=== PATIENT | male | born 1945 | race Caucasian/White ===

== ENCOUNTER 2018-12-22 08:32 | Observation (INO) ==
[2018-12-22] MEDS ORDERED: Aspirin 81 MG TAB.CHEW PO ONE (08:43)
[2018-12-22] MEDS ORDERED: Nitroglycerin 0.4 MG TAB.SUBL SL PRN (08:43)
--- NOTE | 2018-12-22 08:52 | Emergency Department Note ---
Disposition Clinical Impression: Drug overdose Qualifiers: Encounter type: initial encounter Injury intent: accidental or unintentional Qualified Code(s): T50.901A - Poisoning by unspecified drugs, medicaments and biological substances, accidental (unintentional), initial encounter Chest pain Qualifiers: Chest pain type: unspecified Qualified Code(s): R07.9 - Chest pain, unspecified Disposition: Admitted As Inpatient Condition: Fair Time of Disposition: 13:30 General Adult HPI - General Chief complaint: ED Overdose Stated complaint: OD Time Seen by Provider: 12/22/18 08:42 Source: patient, EMS, police Mode of arrival: EMS Limitations: no limitations Nursing Notes Reviewed: Yes Vital Signs Reviewed: Yes - History of Present Illness HPI Narrative: 73-year-old male with uncertain past medical history possibly cardiac and, acco rding to police, a history of drug use, and multiple sexual partners. Who reportedly was found unresponsive this morning and EMS was called. When EMS responded he was breathing at a times per minute they administered 5 of intranasal Narcan which make him more alert and oriented and able to answer questions. EMS denies every responding to this patient for an overdose before, but police report multiple episodes of responding to calls for soliciting prostitutes. Pt denies using any illicit substances, but police report multiple syringes and drug paraphenelia in the pt's home. Pt is complaining chest pain, and also reports that he thinks he had a heart attack on [facility] because he had 10 minutes of chest pain. He did not seek medical care at that time. Pain Scale: 0 - Related Data Allergies Allergy/AdvReac Type Severity Reaction Status Date / Time Penicillins Allergy Hives Verified 12/22/18 09:42 Review of Systems: All systems ED: reviewed and negative except as stated. Constitutional: Denies: fever, chills ENT ED: Denies: ear pain, throat pain Cardiovascular: Denies: palpitations Reports: chest pain Respiratory: Denies: cough, dyspnea Gastrointestinal: Denies: abdominal pain, nausea, vomiting, diarrhea, constipation Genitourinary: Denies: urgency, dysuria, frequency Musculoskeletal: Denies: back pain, neck pain Integumentary: Denies: rash, abrasion Neurological: Denies: weakness, numbness, paresthesias Reports: headache Psychiatric: Denies: anxiety, depression Endocrine: Denies: fatigue, heat or cold intolerance Hematological/Lymphatic: Denies: easy bleeding, easy bruising Allergic/Immunologic: Denies: facial swelling, urticaria All systems ED: reviewed and negative except as stated. Past Medical History - Past Medical History Attestation: Yes The following information was validated with the patient. Medical history: Reports: myocardial infarction Psychiatric history: Reports: no psych history - Social History Smoking Status: Current every day smoker Alcohol use: Reports: none Physical Exam General: A&O x 3. Shivering. Thin, cachetic male. Disheveled. Clothes appear soiled. Head: atraumatic, normocephalic. ENT: No conjunctival injection, no scleral icterus. PERRLA. EOMI. Oropharynx non- erythematous. mucous membranes dry. Neuro: No focal deficits, no speech deficit, no facial droop, mentating well. BUE/BLE Str 5/5. Pulm: Lungs CTAB A/P. No wheezes, rales, ronchi. Cardio: Tachycardia. Chest not tender to palpation. Abd: Soft, non-distended. Normoactive bowel sounds. Non-tender to palpation. No guarding. Non rigid. Extremities: Radial pulses 2+ [place], dorsalis pedis/posterior tibialis 2+ [place]. No LE edema. No cyanosis, clubbing. Skin: warm, dry, intact. No rashes. Psych: Appropriate mood and affect. Answers questions appropriately. Cooperative with exam. - General Limitations: no limitations General appearance: alert Course Course Narrative: Ddx includes but is not limited to: ACS, overdose Workup: CBC, BMP, troponin, LFTs, UA, CXR, EKG, UDS Vital Signs Temperature 99.0 F 12/22/18 08:33 Pulse Rate 79 12/22/18 08:33 Respiratory Rate 16 12/22/18 08:33 Blood Pressure 167/99 12/22/18 08:33 O2 Sat by Pulse Oximetry 99 12/22/18 08:33 Temperature 99.0 F 12/22/18 08:33 Pulse Rate 67 12/22/18 11:34 Respiratory Rate 16 12/22/18 14:02 Blood Pressure 104/74 12/22/18 14:02 O2 Sat by Pulse Oximetry 97 12/22/18 11:34 Oxygen Delivery Oxygen Delivery Room Air Medical Decision Making - [facility] Narrative Medical decision making narrative: CXR was negative for acute cardiopulmonary findings, EKG did not show ischemic changes, initial troponin was negative. However, HEART score of 6, age, and personal risk factors including cocaine use places him at increased risk for adverse cardiac outcome. Additionally, with hx of recent chest pain on Easter makes this morning's episode slightly more likely to be cardiac in origin. Will admit to hospitalist.Shared workup results with patient at bedside and recommended admission and pt was amenable to the plan. Pt was given aspirin and lorazepam in the department given positive cocaine on UDS. Patient was given an opportunity to ask questions at bedside and all of their concerns were addresse d. Patient verbalized understanding and agreement with plan of care. Pt remained stable while in the department. - Medical Records Medical records reviewed: Yes I reviewed the patient's medical records. - Lab Data Lab results reviewed: Yes I reviewed the patient's lab results. Result diagrams: 12/22/18 09:24 12/22/18 09:24 Lab Results 12/22/18 12/22/18 12/22/18 Range/Units 09:24 09:24 09:24 WBC 6.2 (4.3-11.1) K/mcL RBC 4.59 (4.19-5.50) M/mcL Hgb 14.5 (12.9-16.9) g/dL Hct 43.6 (37.5-50.1) % MCV 95.0 (83.0-100.0) fL MCH 31.6 (28.0-33.3) pg MCHC 33.3 (31.6-35.5) g/dL RDW 13.5 (11.5-14.5) % Plt Count 257 (140-400) K/mcL MPV 10.3 (9.4-12.4) fL Immature Gran % 0.3 (0-4) % Seg Neutrophils % 75.4 % Lymphocytes % 14.4 % Monocytes % 7.5 % Eosinophils % 1.9 % Basophils % 0.5 % Neutrophils # 4.7 (1.6-8.9) K/mcL Lymphocytes # 0.9 (0.6-4.6) K/mcL Monocytes # 0.5 (0.0-1.3) K/mcL Eosinophils # 0.1 (0.0-0.6) K/mcL Basophils # 0.0 (0.0-0.2) K/mcL PT 11.1 (9.4-12.1) Seconds INR 1.0 APTT 30.9 (26.0-36.0) Seconds Sodium (136-145) mEq/L Potassium (3.5-5.1) mEq/L Chloride (98-107) mEq/L Carbon Dioxide (23-29) mEq/L BUN (8-23) mg/dL Creatinine (0.70-1.30) mg/dL Est GFR ( Amer) (> 60) Est GFR (Non-Af Amer) (> 60) BUN/Creatinine Ratio (6-26) Glucose (70-105) mg/dL Calculated Osmolality (280-300) Calcium (8.6-10.3) mg/dL Total Bilirubin 0.7 (0.3-1.0) mg/dL Direct Bilirubin 0.1 (0.0-0.2) mg/dL Indirect Bilirubin 0.6 (0.0-1.2) mg/dL AST 140 H (13-39) Units/L ALT 200 H (7-52) Units/L Alkaline Phosphatase 75 (34-104) Units/L Troponin I (< 0.04) ng/mL Serum Total Protein 7.5 (6.4-8.9) g/dL Albumin 3.8 (3.5-5.7) g/dL Globulin 3.7 H (2.4-3.5) g/dL Albumin/Globulin Ratio 1.0 L (1.1-2.2) Urine Color (Yellow) Urine Clarity (Clear) Urine pH (5.0-8.0) pH Units Ur Specific [place] (1.010-1.025) Urine Protein (Neg-Trace) mg/dL Urine Glucose (UA) (Normal) mg/dL Urine Ketones (Negative) mg/dL Urine Blood (Negative) Urine Nitrite (Negative) Urine Bilirubin (Negative) Urine Urobilinogen (Normal) mg/dL Ur Leukocyte Esterase (Negative) Ur Culture Indicated? (NO) Urine Opiates Screen (Dakkcx=835) ng/mL Ur Barbiturates Screen (Fsrzod=530) ng/mL Ur Phencyclidine Scrn (Cutoff=25) ng/mL Ur Amphetamines Screen (Rmdrdn=4761) ng/mL U Benzodiazepines Scrn (Fknfgv=854) ng/mL Urine Cocaine Screen (Cutoff= 300) ng/mL U Marijuana (THC) Screen (Cutoff = 50) ng/mL Ur Drug Screen Interp 12/22/18 12/22/18 12/22/18 Range/Units 09:24 11:40 11:43 WBC (4.3-11.1) K/mcL RBC (4.19-5.50) M/mcL Hgb (12.9-16.9) g/dL Hct (37.5-50.1) % MCV (83.0-100.0) fL MCH (28.0-33.3) pg MCHC (31.6-35.5) g/dL RDW (11.5-14.5) % Plt Count (140-400) K/mcL MPV (9.4-12.4) fL Immature Gran % (0-4) % Seg Neutrophils % % Lymphocytes % % Monocytes % % Eosinophils % % Basophils % % Neutrophils # (1.6-8.9) K/mcL Lymphocytes # (0.6-4.6) K/mcL Monocytes # (0.0-1.3) K/mcL Eosinophils # (0.0-0.6) K/mcL Basophils # (0.0-0.2) K/mcL PT (9.4-12.1) Seconds INR APTT (26.0-36.0) Seconds Sodium 136 (136-145) mEq/L Potassium 3.9 (3.5-5.1) mEq/L Chloride 102 (98-107) mEq/L Carbon Dioxide 26 (23-29) mEq/L BUN 16 (8-23) mg/dL Creatinine 0.95 (0.70-1.30) mg/dL Est GFR ( Amer) > 60 (> 60) Est GFR (Non-Af Amer) > 60 (> 60) BUN/Creatinine Ratio 17 (6-26) Glucose 106 H (70-105) mg/dL Calculated Osmolality 284 (280-300) Calcium 9.4 (8.6-10.3) mg/dL Total Bilirubin (0.3-1.0) mg/dL Direct Bilirubin (0.0-0.2) mg/dL Indirect Bilirubin (0.0-1.2) mg/dL AST (13-39) Units/L ALT (7-52) Units/L Alkaline Phosphatase (34-104) Units/L Troponin I < 0.03 (< 0.04) ng/mL Serum Total Protein (6.4-8.9) g/dL Albumin (3.5-5.7) g/dL Globulin (2.4-3.5) g/dL Albumin/Globulin Ratio (1.1-2.2) Urine Color Yellow (Yellow) Urine Clarity Clear (Clear) Urine pH 7.0 (5.0-8.0) pH Units Ur Specific [place] 1.009 L (1.010-1.025) Urine Protein Negative (Neg-Trace) mg/dL Urine Glucose (UA) Normal (Normal) mg/dL Urine Ketones Negative (Negative) mg/dL Urine Blood Negative (Negative) Urine Nitrite Negative (Negative) Urine Bilirubin Negative (Negative) Urine Urobilinogen Normal (Normal) mg/dL Ur Leukocyte Esterase Negative (Negative) Ur Culture Indicated? NO (NO) Urine Opiates Screen Negative (Nvftxv=047) ng/mL Ur Barbiturates Screen Negative (Mivurq=744) ng/mL Ur Phencyclidine Scrn Negative (Cutoff=25) ng/mL Ur Amphetamines Screen Negative (Pzgope=4729) ng/mL U Benzodiazepines Scrn Negative (Njiwqw=254) ng/mL Urine Cocaine Screen Positive H (Cutoff= 300) ng/mL U Marijuana (THC) Screen Negative (Cutoff = 50) ng/mL Ur Drug Screen Interp See Below - Radiology Data Radiology results reviewed: Yes I reviewed the patient's radiology results. Chest X-Ray 12/22/18 08:43 IMPRESSION: No acute abnormality. D/ / Bertin Bee MD / Bertin Bee MD Interpreting Provider: Bertin Bee MD - EKG Data EKG #1 EKG attestation: Yes I reviewed and interpreted this EKG. EKG results narrative: HR 76, rhythm sinus, axis slight right at 93. FL 130, QRS 89, QTc 450. No ST elevation or depression. Attestation Statement - Attestation Attestation: Patient was seen with resident physician. I reviewed the history, physical, assessment and plan, and agree with the findings. I also personally evaluated this patient and had ghgn-ex-njue time with this patient. 73-year-old male presents emergency department with overdose. Patient is a known heroin addict. He was found by bystanders who called the police and subsequently they notified EMS. He is given 5 mg of intranasal Narcan which ultimately improved his mental status. His breathing was at 6 breaths per minute on initial EMS arrival. By the time we saw him patient states he has had some intermittent chest pain. He claims that he had a heart attack over [facility]. He says he does not have chest pain now. There is some bruising on his chest where apparently they attempted to sternally rubbed him to arouse consciousness. This area is tender to palpation. Denies other complaints. Review of systems as above remainder negative. Physical exam vital signs are stable. ENT is unremarkable. Heart regular rhythm and rate. Lungs are clear. Abdomen is soft and nontender. Extremities unremarkable. Neurologically intact focal deficits. Skin no rashes. Psych is normal. ED course. We will do a full cardiac workup. We will also monitor here for signs of worsening overdose or the need for additional Narcan. Because this patient's history of chest pain and multiple other issues, he will be admitted to the hospitalist service for rule out and additional evaluation and treatment is indicated. Chest x-ray showed no acute changes. EKG similarly showed no acute changes. Patient was lucid throughout his stay. He did not require additional Narcan. His drug screen was positive for cocaine. I have a feeling his drug screen will later be positive for opiates as well based on his history. We did speak with the hospitalist service agreed to accept the patient for admission. I agree with resident physician assessment and plan. Heart Score - Score History: Moderately Suspicious EKG: Non Specific repolarisation Disturbance Age: Greater than 65 Risk Factors: Equal/Greater than 3 risk factor or history of atherosclerotic disease Troponin: Less than normal limit HEART Score Total: 6
[2018-12-22 09:46] LABS: Basophils % 0.5 %; Eosinophils # 0.1 K/mcL (0.0-0.6); Eosinophils % 1.9 %; Hematocrit 43.6 % (37.5-50.1); Hemoglobin 14.5 g/dL (12.9-16.9); Immature Granulocytes % 0.3 % (0-4); Lymphocytes # 0.9 K/mcL (0.6-4.6); Lymphocytes % 14.4 %; Mean Corpuscular HGB Conc 33.3 g/dL (31.6-35.5); Mean Corpuscular Hemoglobin 31.6 pg (28.0-33.3); Mean Platelet Volume 10.3 fL (9.4-12.4); Monocytes # 0.5 K/mcL (0.0-1.3); Monocytes % 7.5 %; Neutrophils # 4.7 K/mcL (1.6-8.9); Platelet Count 257 K/mcL (140-400); Red Blood Count 4.59 M/mcL (4.19-5.50); Red Cell Distribution Width 13.5 % (11.5-14.5); Segmented Neutrophils % 75.4 %
[2018-12-22 09:55] LABS: Prothrombin Time 11.1 Seconds (9.4-12.1)
[2018-12-22 09:58] LABS: Activated Partial Thrombo Time 30.9 Seconds (26.0-36.0)
[2018-12-22 10:05] LABS: Albumin 3.8 g/dL (3.5-5.7); Bilirubin,Direct 0.1 mg/dL (0.0-0.2); Bilirubin,Indirect 0.6 mg/dL (0.0-1.2); Bilirubin,Total 0.7 mg/dL (0.3-1.0); Globulin 3.7 g/dL (2.4-3.5); Total Protein 7.5 g/dL (6.4-8.9)
[2018-12-22 10:06] LABS: BUN/Creatinine Ratio 17 (6-26); Blood Urea Nitrogen 16 mg/dL (8-23); Calcium 9.4 mg/dL (8.6-10.3); Carbon Dioxide 26 mEq/L (23-29); Chloride 102 mEq/L (98-107); Glucose 106 mg/dL (70-105); Osmolality,Calculated 284 (280-300); Potassium 3.9 mEq/L (3.5-5.1); Sodium 136 mEq/L (136-145); Troponin I < 0.03 ng/mL (< 0.04); eGFR For Non-African Americans > 60 (> 60)
[2018-12-22 11:56] LABS: Bilirubin,Urine Negative (Negative); Blood,Urine Negative (Negative); Clarity,Urine Clear (Clear); Color,Urine Yellow (Yellow); Glucose,Urine (UA) Normal (Normal); Ketones,Urine Negative (Negative); Leukocyte Esterase,Urine Negative (Negative); Nitrite,Urine Negative (Negative); Protein,Urine Negative (Neg-Trace); Specific Gravity,Urine 1.009 (1.010-1.025); Urobilinogen,Urine Normal (Normal)
[2018-12-22 12:17] LABS: Amphetamine Screen,Urine Negative ng/mL (Cutoff=1000); Barbiturate Screen,Urine Negative ng/mL (Cutoff=200); Benzodiazepines Screen,Urine Negative ng/mL (Cutoff=200); Cannabinoid Screen,Urine Negative ng/mL (Cutoff = 50); Cocaine Screen,Urine Positive ng/mL (Cutoff= 300); Opiate Screen,Urine Negative ng/mL (Cutoff=300); Phencyclidine Screen,Urine Negative ng/mL (Cutoff=25)
[2018-12-22] MEDS ORDERED: *HR* LORazepam 0.5 MG TABLET PO ONE (12:30)
[2018-12-22] MEDS ORDERED: Naloxone 0.4 MG/ML INJ IVP PRN (13:21)
--- NOTE | 2018-12-22 13:30 | Internal Med History&Physical ---
Date of Encounter: 12/22/18 Time of Encounter: 13:26 Internal Medicine - H&P: HPI Chief complaint: overdose Admitted From: Home Plans for Post Hospital Care: Home History of present illness: Mr. Lane is a 73 year old male with no non past medical history was brought in by the police for possible overdose. history is extremely limited as patient is uncooperative with providing history. as per patient he is unsure as to why he was aria here. he reports that the policy specialist came to his home nad he was sleeping and they decided to bring him to the ED. he denies history of heart attacks or stents hwoever he does report that on 2018 he felt chest pain that he thought was a heart attack however he never seeked any medical attention. currently he denies chest pain however his anterior chest is sore to touch. hwne asked if they did sternal rubs to wake him he responds " I dont know". he is not taking any medications other than a capsule to make his stool more solid when asked about the name he is unsure of the name. he denies drug use. he denies alcohol use. denies chest trauma, syncope, weakness of his extremities. as per ED physician documentation he was "found unresponsive and required 5 narcans to become responsive. post Narcans he was Axox3. police report multiple syringes and drug paraphenelia in the pt's home." currently he has no complaints, denies SI or HI- nurs eat bedside who witnessed our conversation. Past Med Surg Social Fam HX - Past Medical History Medical history: myocardial infarction Psychiatric history: no psych history - Past Surgical History Additional surgical history: hemorrhoid surgery - Social History Smoking Status: Current every day smoker Alcohol use: none Internal Medicine - H&P: Meds Allergy/AdvReac Type Severity Reaction Status Date / Time Penicillins Allergy Hives Verified 12/22/18 09:42 All Systems PM: A 10-system review of systems was performed and is negative for pertinent findings except as documented above in the HPI. - Constitutional Vitals: Temp Pulse Resp BP Pulse Ox 99.0 F 67 16 133/85 97 12/22/18 08:33 12/22/18 11:34 12/22/18 11:34 12/22/18 11:34 12/22/18 11:34 Exam: General: Patient is alert, oriented, no acute distress, thin, uncooperative with exam at times. eating when Im auscultating his chest Head: atraumatic, normocephalic, temporal wasting Eye: normal appearance, PERRL, no scleral icterus, no conjunctival injection ENT: mucous membranes moist, normal external ear exam Neck: normal inspection, trachea midline, full ROM, no carotid bruits Chest: normal inspection, symmetric chest rise Respiratory: Good respiratory effort. Bilateral breath sounds are clear without wheezing, crackles, or rhonchi. Cardiovascular: Regular rate and rhythm. s1 and s2 No clicks, rubs, gallops, or murmors. Abdomen: Bowel sounds present normoactive x-4 quadrants. Abdomen is soft, nondistended. no Epigastric tenderness. No guarding or rebound. No organomegaly noted, musculoskeletal: Spontaneously moving all extremities. no edema, no calf tenderness Skin: warm, dry, intact. Neuro: Alert and oriented x no focal deficit , CN 2-12 intact Psych: Patient's affect is normal Internal Med - H&P Results - Labs CBC & Chem 7: 12/22/18 09:24 12/22/18 09:24 Labs: Short CBC 12/22/18 Range/Units 09:24 WBC 6.2 (4.3-11.1) K/mcL Hgb 14.5 (12.9-16.9) g/dL Hct 43.6 (37.5-50.1) % Plt Count 257 (140-400) K/mcL Neutrophils # 4.7 (1.6-8.9) K/mcL BMP 12/22/18 09:24 Sodium 136 Potassium 3.9 Chloride 102 Carbon Dioxide 26 BUN 16 Creatinine 0.95 Glucose 106 H Calcium 9.4 Cardiac Enzymes 12/22/18 Range/Units 09:24 Troponin I < 0.03 (< 0.04) ng/mL Liver Function 12/22/18 Range/Units 09:24 Total Bilirubin 0.7 (0.3-1.0) mg/dL Direct Bilirubin 0.1 (0.0-0.2) mg/dL AST 140 H (13-39) Units/L ALT 200 H (7-52) Units/L Alkaline Phosphatase 75 (34-104) Units/L Albumin 3.8 (3.5-5.7) g/dL Urine 12/22/18 Range/Units 11:40 Urine Color Yellow (Yellow) Urine Clarity Clear (Clear) Urine pH 7.0 (5.0-8.0) pH Units Ur Specific [place] 1.009 L (1.010-1.025) Urine Protein Negative (Neg-Trace) mg/dL Urine Glucose (UA) Normal (Normal) mg/dL - EKG Data -: EKG Interpreted by Myself EKG shows normal: sinus rhythm (por quality ?RAD, QT 450 ) - EKG Data Prior EKG available for review: yes When compared to previous EKG: there is no significant change - Impressions ITS Impressions Chest X-Ray 12/22/18 08:43 IMPRESSION: No acute abnormality. D/ / Bertin Bee MD / Bertin Bee MD Interpreting Provider: Bertin Bee MD - Assessment and Plan (1) Drug overdose Current Visit: Yes Status: Acute Assessment and plan: ? opiod overdose as he responded to narcan however Utox is negative for opiates ( as per poison control synthetic opiates wont show on the urine toxicology) patient has no SI or HI, denies using illicit drugs neurochecks Q4H aspiration, fall, seizure precautions elevate HOB narcan PRN continuous pulse ox and telemetry SW and CM consulted CPK, lactic acid, tylenol, salicylates, oxycodone i called [facility]ie de [facility] poison control who recommended IV NAC for elevated LFTs check LFTs 2 hrs before the last bag of NAC. will get psych consult Qualifiers: Encounter type: initial encounter Injury intent: undetermined intent Qualified Code(s): T50.904A - Poisoning by unspecified drugs, medicaments and biological substances, undetermined, initial encounter (2) Chest pain Current Visit: Yes Status: Acute Assessment and plan: chest pain doubt ACS but will rule out as he has risk factors most likely secondary to cocaine use cardiac monitoring avoid BB as he has UTox positive for cocaine was loaded with ASA in the ED continue with 81 mg daily echocardiogram serial troponins and EKGs Q6H NTG PRN for chest pain Qualifiers: Chest pain type: unspecified Qualified Code(s): R07.9 - Chest pain, unspecified (3) Transaminitis Current Visit: Yes Status: Acute Assessment and plan: ?secondary to drug use vs alcohol vs hepatitis ( has drug use disorder) hepatitis panel, tylenol, salicylates management as above continue to monitor hepatic functions avoid hepatotoxic medications (4) DVT prophylaxis Current Visit: Yes Status: Acute Assessment and plan: heparin sc - Time Spent With Patient Total time spent is greater than 50% in coordination of care (as documented) at patient's floor/unit and/or counseling patient:
[2018-12-22 14:18] LABS: Acetaminophen < 10 mcg/mL (10-20); Creatine Kinase 149 Units/L (30-223); Salicylate < 2.5 mg/dL (15.0-30.0)
[2018-12-22 15:05] LABS: Hepatitis B Surface Antibody < 3.10 mIU/mL
[2018-12-22 15:16] LABS: Hepatitis B Surface Antigen Nonreactive (Nonreactive)
[2018-12-22 15:45] LABS: Hepatitis A Antibody IgM Nonreactive (Nonreactive); Hepatitis B Core IgM Nonreactive (Nonreactive)
[2018-12-22] MEDS ORDERED: WATER IVC ONE ×3 (15:54→21:30)
[2018-12-22] MEDS ORDERED: D5 IVC ONE ×3 (15:54→21:30)
[2018-12-22] MEDS ORDERED: ACETYLCYSTEINE IVC ONE ×3 (15:54→21:30)
[2018-12-22 17:17] LABS: Hepatitis C Virus Antibody Reactive (Nonreactive)
[2018-12-22] MEDS: Thiamine (B-1) 100 MG TABLET PO SCH (17:32)
[2018-12-22] MEDS: 0.9 % Sodium Chloride 1,000 ML IVC SCH (17:33)
[2018-12-22] MEDS: *HR* Heparin 5,000 UNIT/ML VIAL SQ SCH ×2 (17:33→20:48)
[2018-12-22] MEDS: Folic Acid 1 MG TABLET PO SCH (17:33)
[2018-12-23 01:41] LABS: Basophils % 0.6 %; Eosinophils # 0.1 K/mcL (0.0-0.6); Eosinophils % 1.3 %; Hematocrit 40.1 % (37.5-50.1); Hemoglobin 13.2 g/dL (12.9-16.9); Immature Granulocytes % 0.1 % (0-4); Lymphocytes # 1.6 K/mcL (0.6-4.6); Lymphocytes % 23.9 %; Mean Corpuscular HGB Conc 32.9 g/dL (31.6-35.5); Mean Corpuscular Hemoglobin 30.8 pg (28.0-33.3); Mean Corpuscular Volume 93.5 fL (83.0-100.0); Mean Platelet Volume 10.4 fL (9.4-12.4); Monocytes # 0.7 K/mcL (0.0-1.3); Monocytes % 9.9 %; Neutrophils # 4.4 K/mcL (1.6-8.9); Platelet Count 240 K/mcL (140-400); Red Blood Count 4.29 M/mcL (4.19-5.50); Red Cell Distribution Width 13.7 % (11.5-14.5); Segmented Neutrophils % 64.2 %
[2018-12-23 02:01] LABS: Alanine Aminotransferase 145 Units/L (7-52); Albumin 3.1 g/dL (3.5-5.7); Albumin/Globulin Ratio 0.9 (1.1-2.2); Alkaline Phosphatase 58 Units/L (34-104); Aspartate Amino Transferase 81 Units/L (13-39); BUN/Creatinine Ratio 20 (6-26); Bilirubin,Total 0.7 mg/dL (0.3-1.0); Blood Urea Nitrogen 16 mg/dL (8-23); Calcium 8.7 mg/dL (8.6-10.3); Carbon Dioxide 26 mEq/L (23-29); Chloride 106 mEq/L (98-107); Chol/HDL Ratio 4.4 (0-4.9); Cholesterol 122 mg/dL (< 200); Globulin 3.4 g/dL (2.4-3.5); Glucose 107 mg/dL (70-105); HDL Cholesterol 28 mg/dL (40-59); LDL Cholesterol,Calculated 84 mg/dL (0-99); Magnesium 2.2 mg/dL (1.6-2.6); Osmolality,Calculated 290 (280-300); Phosphorous 3.4 mg/dL (2.7-4.5); Potassium 4.1 mEq/L (3.5-5.1); Sodium 139 mEq/L (136-145); Total Protein 6.5 g/dL (6.4-8.9); Triglycerides 52 mg/dL (< 150); eGFR For Non-African Americans > 60 (> 60)
[2018-12-23] MEDS: *HR* Heparin 5,000 UNIT/ML VIAL SQ SCH ×3 (05:58→21:24)
--- NOTE | 2018-12-23 09:45 | Electrocardiograph Report ---
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
--- NOTE | 2018-12-23 09:53 | Electrocardiograph Report ---
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
[2018-12-23] MEDS: Thiamine (B-1) 100 MG TABLET PO SCH (10:06)
[2018-12-23] MEDS: Folic Acid 1 MG TABLET PO SCH (10:06)
[2018-12-23] MEDS: 0.9 % Sodium Chloride 1,000 ML IVC SCH (10:07)
[2018-12-23] MEDS: Aspirin 81 MG TAB.CHEW PO SCH (10:07)
--- NOTE | 2018-12-23 13:06 | Internal Med Progress Note ---
Hospitalist Progress Note - Encounter Date of Encounter: 12/23/18 Time of Encounter: 09:00 - Subjective Interval History: Mr. Lane is a 73 year old male with known past medical history of chronic Hep C and subs stance abuse was brought in by the police for possible overdose. history is extremely limited as patient is uncooperative with providing history. As per patient he is unsure as to why he was brought here. he reports that the station gateman came to his home and he was sleeping and they decided to bring him to the ED. As per ED physician documentation he was "found unresponsive and required 5 narcans to become responsive. post Narcans he was A, A, O x 4. Police report multiple syringes and drug paraphenelia in the pt's home." Now his UDS came back as positive for Cocaine. Today he is more alert, awake and O x 4. Denied any suicidal ideation. However he still does not remember what happened y/d. He still confused at times. - Exam Vitals: Temp Pulse Resp BP Pulse Ox 99.2 F 77 16 146/86 94 12/23/18 11:19 12/23/18 11:19 12/23/18 11:19 12/23/18 11:19 12/23/18 11:19 Exam: Gen: Alert, awake, Oriented to time,place and person.. still confused Chest: Diminished breath sounds B/L, No wheezing, No crackles, No rales Heart: S1S2+ RRR No murmurs Abd: Soft, NT, BS +, No organomegaly Ext: No edema, pulses are palpable, No calf tenderness Neuro : no focal neuro deficits Psych: No suicidal ideation Skin: No rash. - Assessment and Plan (1) Drug overdose Current Visit: Yes Status: Acute Assessment and Plan: UDS positive for cocaine counseled to quit doing drugs avoid BB Cont on tele negative serial trop elevated LFT's due to Hep C and drug over dose normal tylenol levels no need of Acetyl cysteine gtt.. so d/c it (2) Acute delirium Current Visit: Yes Status: Acute Assessment and Plan: Due to drug over dose pt is still confused unable to provide through history pt was evaluated by psychiatrist, who made [place] slip and recommend 1 on 1 sitter with suicidal precautions Also psych recommend in patient geriatric psych unit transfer SW working on it. (3) Chest pain Current Visit: Yes Status: Acute Assessment and Plan: atypical CP serial trop were negative 2D Echo showed preserved LVEF, no septal/ wall motion abnormalities noticed No further work up needed avoid BB due to UDS positive for Cocaine (4) Transaminitis Current Visit: Yes Status: Acute Assessment and Plan: due to Chronic Hep C and drug over dose trending down no further work up needed (5) DVT prophylaxis Current Visit: Yes Status: Acute Assessment and Plan: heparin sc - Time Spent with Patient Total time spent is greater than 50% in coordination of care (as documented) at patient's floor/unit and/or counseling patient: Internal Medicine: Result - Labs CBC & Chem 7: 12/23/18 01:28 12/23/18 01:28 Labs: Short CBC 12/23/18 Range/Units 01:28 WBC 6.8 (4.3-11.1) K/mcL Hgb 13.2 (12.9-16.9) g/dL Hct 40.1 (37.5-50.1) % Plt Count 240 (140-400) K/mcL Neutrophils # 4.4 (1.6-8.9) K/mcL BMP 12/23/18 01:28 Sodium 139 Potassium 4.1 Chloride 106 Carbon Dioxide 26 BUN 16 Creatinine 0.81 Glucose 107 H Calcium 8.7 Cardiac Enzymes 12/22/18 12/22/18 Range/Units 15:46 20:44 Troponin I < 0.03 < 0.03 (< 0.04) ng/mL Liver Function 12/23/18 Range/Units 01:28 Total Bilirubin 0.7 (0.3-1.0) mg/dL AST 81 H (13-39) Units/L ALT 145 H (7-52) Units/L Alkaline Phosphatase 58 (34-104) Units/L Albumin 3.1 L (3.5-5.7) g/dL - ABG Interpretation ABG results: PT/INR, D-dimer PT 11.1 Seconds (9.4-12.1) 12/22/18 09:24 - Impressions Impressions Echocardiogram 12/23/18 13:24 Impressions: LVEF 60-65%. Normal LV chamber size, wall thickness and function. Mildly dilated right ventricle with normal function. Mildly dilated right atrium. Mild-moderate aortic regurgitation. Mild tricuspid regurgitation. No pulmonary hypertension. Left Ventricular Wall Motion: Rest Echo Findings All wall segments showed normal motion. Findings: Study Quality * Technically adequate exam. ECG Findings * Normal sinus rhythm. Left Ventricle * LVEF 60-65%. * Normal LV chamber size, wall thickness and systolic function. * Normal left ventricular diastolic function. Right Ventricle * Mildly dilated right ventricle with normal function. Left Atrium * Normal left atrial size. Right Atrium * Mildly dilated right atrium. Interatrial Septum * Interatrial septum not well evaluated. * No evidence of PFO by color Doppler. Aortic Valve * Mildly calcified aortic valve leaflets. * Mild-moderate aortic regurgitation. * No aortic stenosis. Mitral Valve * Normal mitral valve structure. * No mitral stenosis. * Trace mitral regurgitation. Tricuspid Valve * Normal tricuspid valve structure. * No tricuspid stenosis. * Mild tricuspid regurgitation. * Estimated RVSP is 29 mmHg. * Estimated RA pressure is 3 mmHg. * No pulmonary hypertension. Pulmonic Valve * Pulmonic valve is not well visualized. * No pulmonic stenosis. * Trace pulmonic regurgitation. Aorta * Normally sized aortic root. Pericardium * The pericardium appears normal. IVC * The IVC is not dilated. * > 50% respiratory change Consult Discharge Plan - Plan [facility]errals: [facility] [Non-Partnered Physician] - 12/30/18 11:15 am (1) Drug overdose Qualifiers: Encounter type: initial encounter Injury intent: undetermined intent Qualified Code(s): T50.904A - Poisoning by unspecified drugs, medicaments and biological substances, undetermined, initial encounter (3) Chest pain Qualifiers: Chest pain type: unspecified Qualified Code(s): R07.9 - Chest pain, unspecified
--- NOTE | 2018-12-23 15:32 | Consult Note ---
Date of Encounter: 12/23/18 Time of Encounter: 15:24 Assessment & Recommendation (1) Drug overdose Current visit: Yes Status: Acute Assessment & Recommendation: Client uncooperative with assessment. Claims overdose was not a suicide attempt but cannot offer any future orientation or positive coping skills. Looks depressed. Unwilling to say what he took or why. Given that he was found unresponsive with multiple syringes/drug paraphenalia would assume he is a safety risk at this time. Client is wanting to leave the hospital without any follow up care. Would recommend filling out a pink slip and transferring him to an inpatient [facility] psych unit once deemed medically stable. Qualifiers: Encounter type: initial encounter Injury intent: undetermined intent Qualified Code(s): T50.904A - Poisoning by unspecified drugs, medicaments and biological substances, undetermined, initial encounter History of Present Illness Requesting Physician: Miguel Angel Patel MD Reason for consult: overdose History of present illness: Mr. Lane is a 73 year old male who was brought into the ER after he was found unresponsive with multiple syringes and drug paraphenalia around him. Client only tested positive for cocaine. Given Narcan x 5 before he was aroused. However, no opiates on tox screen. On eval today client was uncooperative. Denied overdose was intentional but unwilling to discuss what he took or why. Stated he likes cocaine but also reported he inhales it which would not explain all of the syringes. Client refused to discuss his mental health history or whether or not he was depressed. Looked very depressed with a flat affect and almost no reactivity. Very dismissive of any attempts to engage him. Denied overdose was a suicide attempt but unable to offer any future orientation or positive coping skills. No one at bedside to provide collateral information. CC: Miguel Angel Patel MD Past Med Surg Social Fam HX - Past Medical History Medical history: myocardial infarction - Past Psychiatric History Psychiatric history: Reports: no psych history Family psychiatric history: Unknown Family History of Suicide: Unknown - Social History Smoking Status: Current every day smoker Alcohol use: none Drug use: other Medications & Allergies Allergy/AdvReac Type Severity Reaction Status Date / Time Penicillins Allergy Hives Verified 12/22/18 09:42 Review of Systems Constitutional: Denies: fever, chills, weakness, weight change Eyes: Denies: eye pain, vision change Ears, Nose, Throat: Denies: ear pain, throat pain, dental pain, hearing loss, congestion Cardiovascular: Denies: chest pain, palpitations, dyspnea on exertion Respiratory: Denies: cough, dyspnea, wheezes Gastrointestinal: Denies: abdominal pain, nausea, vomiting, diarrhea, constipation Genitourinary male: Denies: urgency, dysuria, frequency, genital lesions Musculoskeletal: Denies: joint swelling, joint pain Integumentary: Denies: rash, lesions, pruritus Neurological: Denies: headache, weakness, numbness, memory loss Endocrine: Denies: fatigue, heat or cold intolerance Hematologic/Lymphatic: Denies: easy bruising, lymphadenopathy Allergic/Immunologic: Denies: urticaria, itchy eyes Psychiatry Exam - Constitutional Vitals: Temp Pulse Resp BP Pulse Ox 99.2 F 77 16 146/86 94 12/23/18 11:19 12/23/18 11:19 12/23/18 11:19 12/23/18 11:19 12/23/18 11:19 General appearance: age & developmentally appropriate, well-groomed, well- nourished - Musculoskeletal Gait: other Station: relaxed Strength & Tone: normal for patient - Psychiatric Patient Orientation: Yes Person, Yes Time, Yes Place Level of alertness: Alert Behavior: uncooperative Psychomotor activity: Normal Eye Contact: Minimal Contact Mood Description: Irritable Affect description: congruent with mood Speech Volume: Normal Speech pattern: normal rate, normal rhythm, normal tone, fluent, spontaneous Language & Vocabulary: consistent with education Thought Process: Linear Thought Content: No Suicidal ideation, No Homicidal ideation, No Overt delusions Perceptual Disturbances: No Auditory hallucinations, No Visual hallucinations Attention Span Ability: Capable of Focused Attention Memory Description: Immediate Intact, Recent Impaired, Remote Intact Patient Reliability: Not Reliable Historian Fund of knowledge: Yes abstraction ability, Yes aware of current events Intelligence Estimate: Average Judgment: Poor Insight: Minimal Results - Drug Levels and Toxicology Drug Levels and Toxicology: Drug Levels and Toxicity 12/22/18 11:43 Ur Oxycodone Screen Negative - Labs Labs: Laboratory Last Values WBC 6.8 K/mcL (4.3-11.1) 12/23/18 01:28 RBC 4.29 M/mcL (4.19-5.50) 12/23/18 01:28 Hgb 13.2 g/dL (12.9-16.9) 12/23/18 01:28 Hct 40.1 % (37.5-50.1) 12/23/18 01:28 MCV 93.5 fL (83.0-100.0) 12/23/18 01:28 MCH 30.8 pg (28.0-33.3) 12/23/18 01:28 MCHC 32.9 g/dL (31.6-35.5) 12/23/18 01:28 RDW 13.7 % (11.5-14.5) 12/23/18 01:28 Plt Count 240 K/mcL (140-400) 12/23/18 01:28 MPV 10.4 fL (9.4-12.4) 12/23/18 01:28 Immature Gran % 0.1 % (0-4) 12/23/18: Seg Neutrophils % 64.2 % 12/23/18 01:28 23.9 % 12/23/18 01:28 9.9 % 12/23/18 01:28 1.3 % 12/23/18 01:28 0.6 % 12/23/18 01:28 4.4 K/mcL (1.6-8.9) 12/23/18 01:28 1.6 K/mcL (0.6-4.6) 12/23/18 01:28 0.7 K/mcL (0.0-1.3) 12/23/18:28 0.1 K/mcL (0.0-0.6) 12/23/18:28 0.0 K/mcL (0.0-0.2) 12/23/18 01:28 PT 11.1 Seconds (9.4-12.1) 12/22/18 09:24 INR 1.0 12/22/18 09:24 APTT 30.9 Seconds (26.0-36.0) 12/22/18 09:24 Sodium 139 mEq/L (136-145) 12/23/18 01:28 Potassium 4.1 mEq/L (3.5-5.1) 12/23/18 01:28 Chloride 106 mEq/L (98-107) 12/23/18 01:28 Carbon Dioxide 26 mEq/L (23-29) 12/23/18 01:28 BUN 16 mg/dL (8-23) 12/23/18 01:28 0.81 mg/dL (0.70-1.30) 12/23/18 01:28 Est GFR ( Amer) > 60 (> 60) 12/23/18 01:28 Est GFR (Non-Af Amer) > 60 (> 60) 12/23/18 01:28 20 (6-26) 12/23/18 01:28 Glucose 107 mg/dL (70-105) H 12/23/18 01:28 290 (280-300) 12/23/18 01:28 Lactic Acid 0.6 mmol/L (0.5-2.2) 12/22/18 13:47 Calcium 8.7 mg/dL (8.6-10.3) 12/23/18 01:28 Phosphorus 3.4 mg/dL (2.7-4.5) 12/23/18 01:28 Magnesium 2.2 mg/dL (1.6-2.6) 12/23/18 01:28 0.7 mg/dL (0.3-1.0) 12/23/18 01:28 0.1 mg/dL (0.0-0.2) 12/22/18 09:24 0.6 mg/dL (0.0-1.2) 12/22/18 09:24 AST 81 Units/L (13-39) H 12/23/18 01:28 ALT 145 Units/L (7-52) H 12/23/18 01:28 58 Units/L (34-104) 12/23/18 01:28 44 mcmol/L (16-53) 12/23/18 01:28 149 Units/L (30-223) 12/22/18 13:47 < 0.03 ng/mL (< 0.04) 12/22/18 20:44 6.5 g/dL (6.4-8.9) 12/23/18 01:28 3.1 g/dL (3.5-5.7) L 12/23/18 01:28 3.4 g/dL (2.4-3.5) 12/23/18 01:28 0.9 (1.1-2.2) L 12/23/18 01:28 Triglycerides 52 mg/dL (< 150) 12/23/18 01:28 Cholesterol 122 mg/dL (< 200) 12/23/18 01:28 LDL Cholesterol, Calc 84 mg/dL (0-99) 12/23/18 01:28 VLDL Cholesterol, Calc 10 mg/dL (< 31) 12/23/18 01:28 28 mg/dL (40-59) L 12/23/18 01:28 4.4 (0-4.9) 12/23/18 01:28 Yellow (Yellow) 12/22/18 11:40 Clear (Clear) 12/22/18 11:40 7.0 pH Units (5.0-8.0) 12/22/18 11:40 Ur Specific [place] 1.009 (1.010-1.025) L 12/22/18 11:40 Negative mg/dL (Neg-Trace) 12/22/18 11:40 Normal mg/dL (Normal) 12/22/18 11:40 Negative mg/dL (Negative) 12/22/18 11:40 Negative (Negative) 12/22/18 11:40 Negative (Negative) 12/22/18 11:40 Negative (Negative) 12/22/18 11:40 Normal mg/dL (Normal) 12/22/18 11:40 Ur Leukocyte Esterase Negative (Negative) 12/22/18 11:40 Ur Culture Indicated? NO (NO) 12/22/18 11:40 Salicylates < 2.5 mg/dL (15.0-30.0) L 12/22/18 13:47 Negative ng/mL (Mimhjj=227) 12/22/18 11:43 Ur Oxycodone Screen Negative ng/mL (Cutoff= 100) 12/22/18 11:43 Acetaminophen < 10 mcg/mL (10-20) L 12/22/18 13:47 Ur Barbiturates Screen Negative ng/mL (Ngrtbm=856) 12/22/18 11:43 Ur Phencyclidine Scrn Negative ng/mL (Cutoff=25) 12/22/18 11:43 Ur Amphetamines Screen Negative ng/mL (Lmmfio=8169) 12/22/18 11:43 U Benzodiazepines Scrn Negative ng/mL (Kudpfs=874) 12/22/18 11:43 Positive ng/mL (Cutoff= 300) H 12/22/18 11:43 U Marijuana (THC) Screen Negative ng/mL (Cutoff = 50) 12/22/18 11:43 Ur Drug Screen Interp See Below 12/22/18 11:43 Ethyl Alcohol < 10 mg/dL (Less than 10) 12/22/18 13:47 Hepatitis A IgM Ab Nonreactive (Nonreactive) 12/22/18 13:47 Hep Bs Antigen Nonreactive (Nonreactive) 12/22/18 13:47 Hep Bs Antibody < 3.10 mIU/mL (10.00-) L 12/22/18 13:47 Hep B Core IgM Ab Nonreactive (Nonreactive) 12/22/18 13:47 Hepatitis C Ab Screen Reactive (Nonreactive) H 12/22/18 13:47 - Impressions Impressions Echocardiogram 12/23/18 13:24 Impressions: LVEF 60-65%. Normal LV chamber size, wall thickness and function. Mildly dilated right ventricle with normal function. Mildly dilated right atrium. Mild-moderate aortic regurgitation. Mild tricuspid regurgitation. No pulmonary hypertension. Left Ventricular Wall Motion: Rest Echo Findings All wall segments showed normal motion. Findings: Study Quality * Technically adequate exam. ECG Findings * Normal sinus rhythm. Left Ventricle * LVEF 60-65%. * Normal LV chamber size, wall thickness and systolic function. * Normal left ventricular diastolic function. Right Ventricle * Mildly dilated right ventricle with normal function. Left Atrium * Normal left atrial size. Right Atrium * Mildly dilated right atrium. Interatrial Septum * Interatrial septum not well evaluated. * No evidence of PFO by color Doppler. Aortic Valve * Mildly calcified aortic valve leaflets. * Mild-moderate aortic regurgitation. * No aortic stenosis. Mitral Valve * Normal mitral valve structure. * No mitral stenosis. * Trace mitral regurgitation. Tricuspid Valve * Normal tricuspid valve structure. * No tricuspid stenosis. * Mild tricuspid regurgitation. * Estimated RVSP is 29 mmHg. * Estimated RA pressure is 3 mmHg. * No pulmonary hypertension. Pulmonic Valve * Pulmonic valve is not well visualized. * No pulmonic stenosis. * Trace pulmonic regurgitation. Aorta * Normally sized aortic root. Pericardium * The pericardium appears normal. IVC * The IVC is not dilated. * > 50% respiratory change Consult Discharge Plan - Plan Referrals: [facility] [Non-Partnered Physician] - 12/30/18 11:15 am
[2018-12-24] MEDS: *HR* Heparin 5,000 UNIT/ML VIAL SQ SCH ×2 (04:39→14:45)
[2018-12-24 05:16] LABS: Alanine Aminotransferase 117 Units/L (7-52); Albumin 3.2 g/dL (3.5-5.7); Albumin/Globulin Ratio 0.9 (1.1-2.2); Alkaline Phosphatase 60 Units/L (34-104); Aspartate Amino Transferase 60 Units/L (13-39); BUN/Creatinine Ratio 17 (6-26); Bilirubin,Total 0.8 mg/dL (0.3-1.0); Blood Urea Nitrogen 12 mg/dL (8-23); Calcium 8.7 mg/dL (8.6-10.3); Carbon Dioxide 25 mEq/L (23-29); Chloride 105 mEq/L (98-107); Globulin 3.6 g/dL (2.4-3.5); Glucose 109 mg/dL (70-105); Osmolality,Calculated 282 (280-300); Potassium 3.7 mEq/L (3.5-5.1); Sodium 136 mEq/L (136-145); Total Protein 6.8 g/dL (6.4-8.9); eGFR For Non-African Americans > 60 (> 60)
[2018-12-24] MEDS: Aspirin 81 MG TAB.CHEW PO SCH (09:20)
[2018-12-24] MEDS: Folic Acid 1 MG TABLET PO SCH (09:20)
[2018-12-24] MEDS: Thiamine (B-1) 100 MG TABLET PO SCH (09:20)
--- NOTE | 2018-12-24 10:26 | Internal Med Progress Note ---
Hospitalist Progress Note - Encounter Date of Encounter: 12/24/18 Time of Encounter: 10:15 - Subjective Interval History: Mr. Lane is a 73 year old male with known past medical history of chronic Hep C and subs stance abuse was brought in by the police for possible overdose. history is extremely limited as patient is uncooperative with providing history. As per patient he is unsure as to why he was brought here. he reports that the crm functional analyst came to his home and he was sleeping and they decided to bring him to the ED. As per ED physician documentation he was "found unresponsive and required 5 narcans to become responsive. post Narcans he was A, A, O x 4. Police report multiple syringes and drug paraphenelia in the pt's home." Now his UDS came back as positive for Cocaine. Today he is more alert, awake and O x 4. Denied any suicidal ideation. Does not look any more confused. He is willing to go to [place] drug rehab. - Exam Vitals: Temp Pulse Resp BP Pulse Ox 97.8 F 78 18 146/89 96 12/24/18 09:34 12/24/18 09:34 12/24/18 09:34 12/24/18 09:34 12/24/18 09:34 Exam: Gen: Alert, awake, Oriented to time,place and person.. Chest: Diminished breath sounds B/L, No wheezing, No crackles, No rales Heart: S1S2+ RRR No murmurs Abd: Soft, NT, BS +, No organomegaly Ext: No edema, pulses are palpable, No calf tenderness Neuro : no focal neuro deficits Psych: No suicidal ideation, depressed+ Skin: No rash. - Assessment and Plan (1) Drug overdose Current Visit: Yes Status: Acute Assessment and Plan: UDS positive for cocaine counseled to quit doing drugs avoid BB Cont on tele negative serial trop elevated LFT's due to Hep C and drug over dose normal tylenol levels LFTs started trending down continue symptomatic and supportive care (2) Depression Current Visit: Yes Status: Acute Assessment and Plan: Pt was found unresponsive at home, also there were multiple syringes/drug paraphenalia around him our psychiatrist felt pt has safety risk at home, and recommend In pt geriatric psych unit pt is medically stable to d/c Psych unit SW working on it (3) Acute delirium Current Visit: Yes Status: Acute Assessment and Plan: Due to drug over dose improved pt was evaluated by psychiatrist, who made [place] slip and recommend 1 on 1 sitter Also psych recommend in patient geriatric psych unit transfer SW working on it. (4) Chest pain Current Visit: Yes Status: Acute Assessment and Plan: atypical CP serial trop were negative 2D Echo showed preserved LVEF, no septal/ wall motion abnormalities noticed No further work up needed avoid BB due to UDS positive for Cocaine (5) Transaminitis Current Visit: Yes Status: Acute Assessment and Plan: due to Chronic Hep C and drug over dose trending down no further work up needed (6) DVT prophylaxis Current Visit: Yes Status: Acute Assessment and Plan: heparin sc - Time Spent with Patient Total time spent is greater than 50% in coordination of care (as documented) at patient's floor/unit and/or counseling patient: Internal Medicine: Result - Labs CBC & Chem 7: 12/23/18 01:28 12/24/18 03:54 Labs: BMP 12/24/18 03:54 Sodium 136 Potassium 3.7 Chloride 105 Carbon Dioxide 25 BUN 12 Creatinine 0.71 Glucose 109 H Calcium 8.7 Liver Function 12/24/18 Range/Units 03:54 Total Bilirubin 0.8 (0.3-1.0) mg/dL AST 60 H (13-39) Units/L ALT 117 H (7-52) Units/L Alkaline Phosphatase 60 (34-104) Units/L Albumin 3.2 L (3.5-5.7) g/dL - ABG Interpretation ABG results: PT/INR, D-dimer PT 11.1 Seconds (9.4-12.1) 12/22/18 09:24 Consult Discharge Plan - Plan Referrals: [facility] [Non-Partnered Physician] - 12/30/18 11:15 am (2) Depression Qualifiers: Depression Type: major depressive disorder (4) Chest pain Qualifiers: Chest pain type: unspecified Qualified Code(s): R07.9 - Chest pain, unspecified
[2018-12-24 14:49] VITALS: BP 149/86
--- NOTE | 2018-12-24 16:16 | Discharge Summary ---
- NOTES TO OUTPATIENT PROVIDER Notes to Outpatient Provider: f/u with PCP in one week. Please quit doing drugs Orders not resulted at time of discharge: Pending orders 12/22/18 09:24 Culture,Blood [BC] Stat Date of Encounter: 12/24/18 Time of Encounter: 16:13 - Discharge Diagnosis (1) Drug overdose Priority: Primary Status: Acute (2) Depression Priority: Primary Status: Acute Qualifiers: Depression Type: major depressive disorder Active/Remission status: currently active Major depression episode severity: moderate Qualified Code(s): F32.1 - Major depressive disorder, single episode, moderate (3) Acute delirium Priority: Secondary Status: Acute (4) Chest pain Priority: Secondary Status: Acute Qualifiers: Chest pain type: unspecified Qualified Code(s): R07.9 - Chest pain, unspecified (5) Transaminitis Priority: Secondary Status: Acute (6) DVT prophylaxis Priority: Secondary Status: Acute Hospital course: Mr. Lane is a 73 year old male with known past medical history of chronic Hep C and subs stance abuse was brought in by the police for possible overdose. history is extremely limited as patient is uncooperative with providing history. As per patient he is unsure as to why he was brought here. he reports that the ping pong table assembler came to his home and he was sleeping and they decided to bring him to the ED. As per ED physician documentation he was "found unresponsive and required 5 narcans to become responsive. post Narcans he was A, A, O x 4. Police report multiple syringes and drug paraphenelia in the pt's home." Now his UDS came back as positive for Cocaine. He was admitted in the hospital and placed him on classroom monitor. His serial troponin came back as negative. He denied any more active chest pain. Patient was you elevated by psychiatrist. Pt was found unresponsive at home, also there were multiple syringes/drug paraphenalia around him. Our psychiatrist felt pt has safety risk at home, and recommend In pt geriatric psych unit.He is willing to go to [facility]. He is medically [facility]. - Time Spent with Patient Total time spent providing and/or coordinating discharge services: - Discharge Medications Prescriptions: New Aspirin 81 mg PO DAILY #30 tab.chew Continued Sertraline [Zoloft] 100 mg PO QAM Oxybutynin Chloride [Ditropan Xl] 5 mg PO HS Multivitamin [Daily Multiple Vitamin] 1 each PO DAILY Melatonin [Melatin] 9 mg PO HS Loperamide [Imodium] 4 mg PO QAM PRN PRN Reason: LOOSE STOOLS Guaifenesin [Tussin Mucus-Chest Congestion] 200 mg PO QID PRN PRN Reason: Cough Benzonatate [Tessalon] 100 mg PO TID PRN PRN Reason: Cough Home Medications: Benzonatate [Tessalon] 100 mg PO TID PRN 12/23/18 [History] Guaifenesin [Tussin Mucus-Chest Congestion] 200 mg PO QID PRN 12/23/18 [History] Loperamide [Imodium] 4 mg PO QAM PRN 12/23/18 [History] Melatonin [Melatin] 9 mg PO HS 12/23/18 [History] Multivitamin [Daily Multiple Vitamin] 1 each PO DAILY 12/23/18 [History] Oxybutynin Chloride [Ditropan Xl] 5 mg PO HS 12/23/18 [History] Sertraline [Zoloft] 100 mg PO QAM 12/23/18 [History] Aspirin 81 mg PO DAILY #30 tab.chew 12/24/18 [Rx] Allergies/Adverse Reactions: Allergy/AdvReac Type Severity Reaction Status Date / Time Penicillins Allergy Hives Verified 12/22/18 09:42 Date of admission: 12/22/18 13:30 Primary care physician: PCP NONE Consults: 12/22/18 13:25 Consult to Case Management [CONS] Routine Comment: 12/22/18 15:59 Consult to Psychiatry [CONS] Routine Consulting Provider: Psychiatry Lorrie Reason consult: Other Other reason and/or additional details: overdose, unclear if it was intentional, he has no SI or HI - however has flat affect adn is very uncooperative with providing history Time Notified: 16:00 Call Completed: Yes 12/24/18 09:29 Consult to Industrial Eng [CONS] Routine Reason for SW Consult: [employer] - Constitutional Vitals: Temp Pulse Resp BP Pulse Ox 98.4 F 84 16 149/86 94 12/24/18 14:48 12/24/18 14:48 12/24/18 14:48 12/24/18 14:48 12/24/18 14:48 General appearance: Present: cooperative, A&O X 3, no acute distress, answers questions appropriately Exam: Gen: Alert, awake, Oriented to time,place and person.. Chest: Diminished breath sounds B/L, No wheezing, No crackles, No rales Heart: S1S2+ RRR No murmurs Abd: Soft, NT, BS +, No organomegaly Ext: No edema, pulses are palpable, No calf tenderness Neuro : no focal neuro deficits Psych: No suicidal ideation, depressed+ Skin: No rash. - Patient Status Disposition: Transfer SNF Condition: Good Overall status at discharge: patient is back to baseline - Discharge Instructions Follow Up With: ARLETH,PCP [Non-Partnered Physician] - 12/30/18 11:15 am - Diet and Activity Activity: increase activity as tolerated Diet: low salt diet
== END 2018-12-24 18:40 ==
LOC: EMEROOARM 08:32 → 3BNU 08:32 → SUATTDRO 13:30 → 3BNU 15:47
PROVIDERS: ADMIT Internal Medicine; ATTEND Family Medicine

== ENCOUNTER 2021-05-17 15:14 | Observation (INO) ==
[2021-05-17] MEDS ORDERED: Naloxone 0.4 MG/ML INJ IVP ONE (21:46)
[2021-05-17 23:44] LABS: Basophils % 0.3 %; Hematocrit 32.3 % (37.5-50.1); Hemoglobin 10.6 g/dL (12.9-16.9); Immature Granulocytes % 1.2 % (0-4); Lymphocytes # 1.1 K/mcL (0.6-4.6); Lymphocytes % 8.5 %; Mean Corpuscular HGB Conc 32.8 g/dL (31.6-35.5); Mean Corpuscular Volume 97.6 fL (83.0-100.0); Mean Platelet Volume 9.5 fL (9.4-12.4); Monocytes # 0.5 K/mcL (0.0-1.3); Monocytes % 3.9 %; Neutrophils # 10.7 K/mcL (1.6-8.9); Platelet Count 356 K/mcL (140-400); Red Blood Count 3.31 M/mcL (4.19-5.50); Red Cell Distribution Width 15.3 % (11.5-14.5); Segmented Neutrophils % 86.1 %; White Blood Count 12.4 K/mcL (4.3-11.1)
[2021-05-17 23:54] LABS: VBG HCO3 26 mEq/L (21-27); VBG PCO2 42 mmHg (41-51); VBG PO2 106 mmHg (25-50)
[2021-05-18 00:05] LABS: Alanine Aminotransferase 96 Units/L (7-52); Albumin 2.9 g/dL (3.5-5.7); Albumin/Globulin Ratio 0.9 (1.1-2.2); Alkaline Phosphatase 83 Units/L (34-104); Aspartate Amino Transferase 137 Units/L (13-39); BUN/Creatinine Ratio 28 (6-26); Bilirubin,Direct 0.1 mg/dL (0.0-0.2); Bilirubin,Indirect 0.4 mg/dL (0.0-1.0); Bilirubin,Total 0.5 mg/dL (0.3-1.0); Blood Urea Nitrogen 29 mg/dL (8-23); Calcium 8.2 mg/dL (8.6-10.3); Carbon Dioxide 24 mEq/L (23-29); Chloride 111 mEq/L (98-107); Globulin 3.3 g/dL (2.4-3.5); Glucose 94 mg/dL (70-105); Osmolality,Calculated 302 (280-300); Potassium 3.9 mEq/L (3.5-5.1); Sodium 143 mEq/L (136-145); Total Protein 6.2 g/dL (6.4-8.9); eGFR For African Americans > 60 (> 60); eGFR For Non-African Americans > 60 (> 60)
[2021-05-18 00:13] LABS: Troponin I 0.55 ng/mL (< 0.04)
[2021-05-18] MEDS ORDERED: Perflutren Lipid Microsphere 1.3 ML in 0.9 % Sodium Chloride 8.7 ML IVP PRN (01:43)
[2021-05-18] MEDS ORDERED: Naloxone 0.4 MG/ML INJ IVP PRN (01:56)
[2021-05-18 04:03] LABS: Basophils % 0.3 %; Eosinophils % 0.3 %; Hematocrit 33.6 % (37.5-50.1); Hemoglobin 10.5 g/dL (12.9-16.9); Immature Granulocytes % 1.1 % (0-4); Lymphocytes # 1.8 K/mcL (0.6-4.6); Lymphocytes % 15.8 %; Mean Corpuscular HGB Conc 31.3 g/dL (31.6-35.5); Mean Corpuscular Hemoglobin 30.9 pg (28.0-33.3); Mean Corpuscular Volume 98.8 fL (83.0-100.0); Mean Platelet Volume 9.5 fL (9.4-12.4); Monocytes # 0.6 K/mcL (0.0-1.3); Monocytes % 5.2 %; Neutrophils # 8.9 K/mcL (1.6-8.9); Platelet Count 352 K/mcL (140-400); Red Cell Distribution Width 15.4 % (11.5-14.5); Segmented Neutrophils % 77.3 %; White Blood Count 11.5 K/mcL (4.3-11.1)
[2021-05-18 04:26] LABS: BUN/Creatinine Ratio 28 (6-26); Blood Urea Nitrogen 28 mg/dL (8-23); Calcium 8.3 mg/dL (8.6-10.3); Carbon Dioxide 24 mEq/L (23-29); Chloride 112 mEq/L (98-107); Chol/HDL Ratio 4.2 (0-4.9); Cholesterol 123 mg/dL (< 200); Glucose 79 mg/dL (70-105); HDL Cholesterol 29 mg/dL (40-59); LDL Cholesterol,Calculated 81 mg/dL (< 100); Magnesium 2.4 mg/dL (1.6-2.6); Osmolality,Calculated 302 (280-300); Phosphorous 3.9 mg/dL (2.7-4.5); Potassium 3.9 mEq/L (3.5-5.1); Sodium 144 mEq/L (136-145); Triglycerides 66 mg/dL (< 150); eGFR For African Americans > 60 (> 60); eGFR For Non-African Americans > 60 (> 60)
[2021-05-18] MEDS ORDERED: Regadenoson 0.4 MG/5 ML SYRINGE IVP ONE ×2 (06:24→08:23)
[2021-05-18] MEDS ORDERED: *HR* Enoxaparin 40 MG/0.4 ML SYRINGE SQ SCH (09:00)
[2021-05-18 10:00] LABS: Bacteria,Urine Few per hpf (None-Few); Bilirubin,Urine Negative (Negative); Blood,Urine Negative (Negative); Clarity,Urine Clear (Clear); Color,Urine Yellow (Yellow); Glucose,Urine (UA) Normal (Normal); Ketones,Urine Negative (Negative); Leukocyte Esterase,Urine Negative (Negative); Mucus,Urine Few per lpf (None-Few); Nitrite,Urine Negative (Negative); PH,Urine 5.5 pH Units (5.0-8.0); Protein,Urine 30 mg/dL (Neg-Trace); RBC,Urine 0-3 per hpf (0-3); Specific Gravity,Urine 1.028 (1.010-1.025); Squamous Epithelial Cell,Urine Few per hpf (None-Few); Urobilinogen,Urine Normal (Normal); WBC,Urine 0-3 per hpf (0-3)
[2021-05-18 11:49] LABS: Amphetamine Screen,Urine Positive ng/mL (Cutoff=1000); Barbiturate Screen,Urine Negative ng/mL (Cutoff=200); Benzodiazepines Screen,Urine Negative ng/mL (Cutoff=200); Cannabinoid Screen,Urine Negative ng/mL (Cutoff = 50); Cocaine Screen,Urine Positive ng/mL (Cutoff= 300); Opiate Screen,Urine Positive ng/mL (Cutoff=300); Phencyclidine Screen,Urine Negative ng/mL (Cutoff=25)
[2021-05-18] MEDS ORDERED: E-Z-PAQUE (BARIUM SULF) SUSP 1 BOTTLE PO ONE (15:02)
[2021-05-18] MEDS: E-Z-HD (BARIUM SULF) SUSPENSION PO ONE ×2 (15:11→15:12)
[2021-05-19 00:28] LABS: Basophils % 0.3 %; Eosinophils # 0.1 K/mcL (0.0-0.6); Eosinophils % 0.7 %; Hematocrit 33.7 % (37.5-50.1); Hemoglobin 10.9 g/dL (12.9-16.9); Immature Granulocytes % 0.7 % (0-4); Lymphocytes # 1.6 K/mcL (0.6-4.6); Lymphocytes % 17.4 %; Mean Corpuscular HGB Conc 32.3 g/dL (31.6-35.5); Mean Corpuscular Hemoglobin 32.2 pg (28.0-33.3); Mean Corpuscular Volume 99.4 fL (83.0-100.0); Mean Platelet Volume 9.7 fL (9.4-12.4); Monocytes # 0.5 K/mcL (0.0-1.3); Monocytes % 5.7 %; Neutrophils # 6.7 K/mcL (1.6-8.9); Platelet Count 326 K/mcL (140-400); Red Blood Count 3.39 M/mcL (4.19-5.50); Red Cell Distribution Width 15.6 % (11.5-14.5); Segmented Neutrophils % 75.2 %; White Blood Count 8.9 K/mcL (4.3-11.1)
[2021-05-19 01:06] LABS: Magnesium 2.2 mg/dL (1.6-2.6); Phosphorous 2.2 mg/dL (2.7-4.5)
[2021-05-19 01:07] LABS: BUN/Creatinine Ratio 29 (6-26); Blood Urea Nitrogen 29 mg/dL (8-23); Calcium 8.4 mg/dL (8.6-10.3); Carbon Dioxide 22 mEq/L (23-29); Chloride 112 mEq/L (98-107); Glucose 161 mg/dL (70-105); Osmolality,Calculated 301 (280-300); Potassium 3.7 mEq/L (3.5-5.1); Sodium 141 mEq/L (136-145); eGFR For African Americans > 60 (> 60); eGFR For Non-African Americans > 60 (> 60)
[2021-05-19 01:56] LABS: Troponin I 0.22 ng/mL (< 0.04)
[2021-05-19 07:21] VITALS: BP 132/76; PULSE 63; TEMP 98.3; O2SAT 94
== END 2021-05-19 11:08 | disposition home or self-care (01) ==
LOC: 3BNU 15:14 → EMEROOARM 15:14 → SUATTDRO 05-18 00:48 → 3BNU 05-18 02:35
PROVIDERS: ADMIT Internal Medicine; ATTEND Internal Medicine